=== PATIENT | male | born 1980 | race Caucasian/White ===

== ENCOUNTER 2022-12-21 07:12 | Day surgery (SDC) | payer OTHER ==
[~2022-12-21 07:12] MED LIST: Lactated Ringers 1,000 ML IV SCH
[2022-12-21] MEDS ORDERED: Propofol 200 MG/20 ML SDV ONE (07:31)
[2022-12-21] MEDS ORDERED: Dexmedetomidine 200 MCG/2 ML SDV ONE (08:32)
[2022-12-21] MEDS ORDERED: Water For Injection, Sterile 20 ML ONE (08:32)
[2022-12-21] MEDS ORDERED: Lidocaine 2% 5 ML SDV ONE (08:34)
== END 2022-12-21 09:55 | disposition home or self-care (01) ==
LOC: MW.SDS 07:12
PROVIDERS: ATTEND Surgery
DX: K21.9 Gastro-esophageal reflux disease without esophagitis (principal); R13.10 Dysphagia, unspecified; K44.9 Diaphragmatic hernia without obstruction or gangrene; F39 Unspecified mood [affective] disorder; F43.10 Post-traumatic stress disorder, unspecified; F41.9 Anxiety disorder, unspecified; G43.909 Migraine, unspecified, not intractable, without status migrainosus; J45.909 Unspecified asthma, uncomplicated; Z79.899 Other long term (current) drug therapy; Z98.890 Other specified postprocedural states
CPT/HCPCS: 43239; J2704; J7120; 00731; 88305; J3490

== ENCOUNTER 2025-01-27 12:41 | Emergency (ER) | payer OTHER | END 2025-01-27 14:14 | disposition home or self-care (01) | LOC: MW.ED 12:41 | DX: S76.912A Strain of unspecified muscles, fascia and tendons at thigh level, left thigh, initial encounter (principal); S70.12XA Contusion of left thigh, initial encounter; Z79.899 Other long term (current) drug therapy; X50.0XXA Overexertion from strenuous movement or load, initial encounter; Y93.89 Activity, other specified | CPT/HCPCS: 99282; 99283 ==